=== PATIENT | male | born 1955 | race Native Hawaiian/Other Pacific Islander ===

== ENCOUNTER 2018-05-31 18:32 | Emergency (ER) | payer SELFPAY ==
[2018-05-31 18:45] VITALS: BP 119/78
--- NOTE | 2018-06-01 00:20 | Emergency Department Report ---
ED ENT HPI - General Chief complaint: Earache Stated complaint: EAR RINGING Time Seen by Provider: 06/01/18 00:16 Source: patient Mode of arrival: Ambulatory Limitations: No Limitations - History of Present Illness Initial comments: This 63-year-old male who presents for right ear pain 1 week pain described as 5/10 aching sesamoid bowel movement palpation patient states mild nocturnal fever no sore throat no shortness of breath no chest pain no headache symptoms relieved by NSAIDs symptoms exacerbated by activity patient has history of AOM however has not been on antibiotics this year. complaint: ear pain Onset/Timin -: week(s) Location: R ear Severity: moderate Severity scale (0 -10): 5 Quality: aching Consistency: intermittent Improves with: none Worsens with: position, movement Associated Symptoms: fever. denies: discharge from ear - Related Data Previous Rx's Medication Instructions Recorded Last Taken Type Amoxicillin 500 mg PO TID #30 capsule 06/01/18 Unknown Rx Ibuprofen 800 mg PO TID PRN #30 tablet 06/01/18 Unknown Rx Allergies Allergy/AdvReac Type Severity Reaction Status Date / Time No Known Allergies Allergy Unverified 05/31/18 18:41 ED Dental HPI - General Chief complaint: Earache Stated complaint: EAR RINGING Time Seen by Provider: 06/01/18 00:16 Source: patient Mode of arrival: Ambulatory Limitations: No Limitations - Related Data Previous Rx's Medication Instructions Recorded Last Taken Type Amoxicillin 500 mg PO TID #30 capsule 06/01/18 Unknown Rx Ibuprofen 800 mg PO TID PRN #30 tablet 06/01/18 Unknown Rx Allergies Allergy/AdvReac Type Severity Reaction Status Date / Time No Known Allergies Allergy Unverified 05/31/18 18:41 ED Review of Systems ROS: Stated complaint: EAR RINGING Other details as noted in HPI Constitutional: fever. denies: chills Eyes: denies: eye pain, eye discharge, vision change ENT: ear pain, congestion Respiratory: denies: cough, shortness of breath, wheezing Cardiovascular: denies: chest pain, palpitations Endocrine: no symptoms reported Gastrointestinal: denies: abdominal pain, nausea, diarrhea Genitourinary: denies: urgency, dysuria Musculoskeletal: denies: back pain, joint swelling, arthralgia Skin: denies: rash, lesions Neurological: denies: headache, weakness, paresthesias Psychiatric: denies: anxiety, depression Hematological/Lymphatic: denies: easy bleeding, easy bruising ED Past Medical Hx - Past Medical History Previous Medical History?: No - Surgical History Past Surgical History?: No - Social History Smoking Status: Never Smoker Substance Use Type: None - Medications Home Medications: Home Medications Medication Instructions Recorded Confirmed Last Taken Type Amoxicillin 500 mg PO TID #30 capsule 06/01/18 Unknown Rx Ibuprofen 800 mg PO TID PRN #30 tablet 06/01/18 Unknown Rx ED Physical Exam - General Limitations: No Limitations General appearance: alert, in no apparent distress - Head Head exam: Present: atraumatic, normocephalic - Eye Eye exam: Present: normal appearance - ENT ENT exam: Present: normal orophraynx, mucous membranes moist, normal external ear exam - Expanded ENT Exam Expanded TM/Canal exam: Erythema: Right TM, Effusion: Right TM, Canal Tenderness: Right TM - Neck Neck exam: Present: normal inspection, full ROM. Absent: tenderness, meningismus, lymphadenopathy, thyromegaly - Respiratory Respiratory exam: Present: normal lung sounds bilaterally. Absent: respiratory distress, wheezes, chest wall tenderness - Cardiovascular Cardiovascular Exam: Present: regular rate, normal rhythm, normal heart sounds - GI/Abdominal GI/Abdominal exam: Present: soft, normal bowel sounds. Absent: distended, tenderness, guarding, rebound, rigid, organomegaly, mass, bruit, pulsatile mass - Rectal Rectal exam: Present: deferred - Extremities Exam Extremities exam: Present: normal inspection - Back Exam Back exam: Present: normal inspection - Neurological Exam Neurological exam: Present: alert, oriented X3, CN II-XII intact, normal gait, reflexes normal - Psychiatric Psychiatric exam: Present: normal affect, normal mood - Skin Skin exam: Present: warm, dry, intact, normal color. Absent: rash ED Course Vital Signs 05/31/18 18:41 Temperature 98.4 F Pulse Rate 75 Respiratory 18 Rate Blood Pressure 119/78 O2 Sat by Pulse 98 Oximetry ED Medical Decision Making - Medical Decision Making AOM will tx for same, pt is tolerating po hydraton there is no trismus no swelling, no sob no stridor, plan tx for AOM, amoxicillin, Tylenol, follow up with [facility] in 2-3 days. pt verbalized agreement and understanding of same. Critical care attestation.: If time is entered above; I have spent that time in minutes in the direct care of this critically ill patient, excluding procedure time. ED Disposition Clinical Impression: AOM (acute otitis media) Qualifiers: Otitis media type: serous Laterality: right Recurrence: not specified as recurrent Qualified Code(s): H65.01 - Acute serous otitis media, right ear Disposition: TO HOME OR SELFCARE Is pt being admited?: No Does the pt Need Aspirin: No Condition: Good Instructions: Otitis Media (ED) Prescriptions: Amoxicillin 500 mg PO TID #30 capsule Ibuprofen 800 mg PO TID PRN #30 tablet PRN Reason: Pain , Severe (7-10) Referrals: [facility] [Outside] - 3-5 Days Forms: Work/School Release Form(ED) Time of Disposition: 00:30
== END 2018-06-01 00:40 | disposition home or self-care (01) ==
LOC: ED 18:32
DX: H65.01 Acute serous otitis media, right ear (principal)
CPT/HCPCS: 99282